=== PATIENT | female | born 1960 | race Caucasian/White ===

== ENCOUNTER → 2016-07-31 | Outpatient (REF) | payer MEDICARE, MEDICAID ==
[~2016-07-31] MED LIST: ALEN70TA47 PO; ALPR0.5T PO; ALPR1TAB2 PO; ARIP5TAB5 PO; ATOR40TA59 PO; CALC-815 PO; CALC300T4 PO; CARB1DRO12 OP; CYCL1DRO2 OP; DULO30CA PO; DULO60CA7 PO; GBPN600T PO; HYDR-3708 PO; IPRA4AER IH; LETR2.5T5 PO; LEVO100T PO; METH10TA5 PO; METH18TA4 PO; MORP60TA52 PO; NF-LUBIP24 PO; PROP1DRO OP; PROP20TA5 PO; RANI150T11 PO; TRAZ100T92 PO; [UNRECOGNIZED DRUG - REMARK]; [UNRECOGNIZED DRUG - REMARK]; [UNRECOGNIZED DRUG - REMARK]; combivent; cymbalta PO; gabapentin; lortab; morphine; simvastatin; xanax; zantac
[2016-07-31 12:51] LABS: ALBUMIN 4.5 g/dL (3.4-5.0); ALKALINE PHOSPHATASE 152 U/L (38-126); ANION GAP 16.7 MEQ/L (3-15); BUN/CREATININE RATIO 21 (10-20); CALCULATED IONIZED CALCIUM 4.4 mg/dL (3.8-4.6); TOTAL PROTEIN 7.9 g/dL (6.4-8.5)
== END ==
LOC: LAB 12:09
PROVIDERS: ATTEND Family Medicine
DX: E03.8 Other specified hypothyroidism (principal); E27.49 Other adrenocortical insufficiency
CPT/HCPCS: 80053; 84439; 84443; 84481; 84482

== ENCOUNTER → 2016-08-13 | Outpatient (CLI) | payer MEDICARE, MEDICAID | LOC: LAB 14:29 | PROVIDERS: ATTEND Family Medicine | DX: D83.8 Other common variable immunodeficiencies (principal) | CPT/HCPCS: 82784 ==

== ENCOUNTER → 2016-09-07 | Outpatient (CLI) | payer MEDICARE, MEDICAID | LOC: RAD 08:45 | PROVIDERS: ATTEND Allergy & Immunology | DX: D83.8 Other common variable immunodeficiencies (principal); R50.9 Fever, unspecified; D64.9 Anemia, unspecified; E89.0 Postprocedural hypothyroidism; Z90.11 Acquired absence of right breast and nipple; Z90.710 Acquired absence of both cervix and uterus | CPT/HCPCS: 71260; 74178; Q9967 ==

== ENCOUNTER 2016-10-02 12:12 | Emergency (ER) | payer MEDICARE, MEDICAID ==
[~2016-10-02] VITALS: Ht 170.2 cm; Wt 109.0 kg
--- NOTE | 2016-10-02 12:12 | NUR ---
TRIAGE TIME IS ACTUALLY 1212. CL
--- OUTSIDE RECORDS SUMMARY | 2016-10-02 12:17 | XMS REPORT | Continuity of Care Document ---
Author Author [facility] Organization [facility] Address Unknown Phone Unavailable Care Team Providers Care Quality Control Supervisor Name Role Phone Preston, Jered PCP [phone] Source Comments Some departments are not documenting in the electronic medical record. If you do not see the information that you expected, contact Release of Information in the Health Information Management department at [phone] for further assistance in locating additional records.[facility] Active Allergies and Adverse Reactions Allergen Noted Date Severity Reactions Comments Pcn 01/07/2014 EDEMA hands Current Medications Prescription Sig. Disp. Refills Start End Date Status Date cycloSPORINE (RESTASIS) Place 1 Drop into or Active 0.05 % ophthalmic around eye(s) twice emulsion daily. Usually uses just once a day morphine SR(+) (TRELL) Take 15 mg by mouth every Active 80 mg capsule 24 hours 1-3 tablet a day gabapentin (NEURONTIN) Take 600 mg by mouth Active 600 mg tablet three times daily. methylphenidate CR Take by mouth every Active (CONCERTA) 54 mg tablet morning Indications: 35mg ALPRAZolam (XANAX) 0.5 mg Take 1 mg by mouth at Active tablet bedtime as needed. alendronate (FOSAMAX) 70 Take 70 mg by mouth every Active mg tablet 7 days. letrozole (FEMARA) 2.5 mg Take 2.5 mg by mouth Active tablet daily. simvastatin (ZOCOR) 40 mg Take 40 mg by mouth at Active tablet bedtime daily. THYROID,PORK (ARMOUR Take by mouth. Active THYROID PO) magnesium Active desvenlafaxine(+) Take by mouth daily. Active (PRISTIQ) 50 mg tablet Indications: 100mg acyclovir (ZOVIRAX) 400 Take 400 mg by mouth as Active mg tablet Needed. MINERAL Place into or around Active OIL/PETROLATUM,WHITE eye(s). (REFRESH P.M. OP) SELENIUM PO Take by mouth. Active glycine powd Take by mouth. Active other medication 1 Dose. UBQH Active other medication Methyl B 12 Active other medication 1 Dose. Active Calcium/Magnesium/zxinc with Vit D lactobacillus rhamnosus Take by mouth twice Active GG (LACTOBACILLUS daily with meals. RHAMNOSUS (GG)) 15 billion cell cpSP cyclobenzaprine Take 10 mg by mouth three Active (FLEXERIL) 10 mg tablet times daily as needed for Muscle Cramps. HYDROCORTISONE PO Take 10 mg by mouth. 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 Social History Tobacco Use Types Packs/Day Years Used Date Current Every Day Smoker Cigarettes 1 Smokeless Tobacco: Never Used Alcohol Use Drinks/Week oz/Week Comments No one drink every few months Last Filed Vital Signs Vital Sign Reading Time Taken Blood Pressure 123/71 10/24/2015 2:47 PM CDT Pulse 76 10/24/2015 2:47 PM CDT Temperature - - Respiratory Rate - - Height 1.676 m (5' 6") 10/24/2015 2:47 PM CDT Weight 54.795 kg (120 lb 12.8 10/24/2015 2:47 PM CDT oz) Body Mass Index 19.51 10/24/2015 2:47 PM CDT Oxygen Saturation - - Plan of Care Health Maintenance Due Date Last Done Comments Hepatitis C Screening 1962 Physical (Comprehensive) 1969 Exam Pertussis Vaccine 1973 Tetanus Vaccine 1979 Cervical Cancer Screening 1983 Breast Cancer Screening 2002 Colorectal Cancer 2012 Screening Influenza Vaccine 03/22/2016 Results from Last 3 Months Not on file
[2016-10-02 12:34] LABS: BASOPHILS % (AUTO) 0 % (0-2); EOSINOPHILS # (AUTO) 0.3 10^3uL; EOSINOPHILS % (AUTO) 3 % (0-4); LYMPHOCYTES # (AUTO) 1.6 X10^3; MEAN CORPUSCULAR HEMOGLOBIN 29.4 PG (26.0-34.0); MEAN CORPUSCULAR HGB CONC 32.4 g/dL (31.0-37.0); MEAN CORPUSCULAR VOLUME 91 FL (80-100); MEAN PLATELET VOLUME 9.8 FL (6.0-9.5); MONOCYTES # (AUTO) 0.9 X10^3; MONOCYTES % (AUTO) 10 % (3-11); NEUTROPHILS # (AUTO) 6.8 X10^3; NEUTROPHILS % (AUTO) 71 % (51-67); PLATELET COUNT 253 10^3uL (150-450); WHITE BLOOD COUNT 9.67 10^3uL (4.0-11.0)
[2016-10-02 13:00] LABS: ALKALINE PHOSPHATASE 138 U/L (38-126); ANION GAP 10.4 MEQ/L (3-15); BUN/CREATININE RATIO 24 (10-20); CALCULATED IONIZED CALCIUM 4.2 mg/dL (3.8-4.6); TOTAL PROTEIN 7.2 g/dL (6.4-8.5)
[2016-10-02 13:05] LABS: BILIRUBIN,URINE Negative (Negative); CLARITY,URINE Clear; COLOR,URINE Yellow; GLUCOSE, URINE (UA) Negative (Negative); LEUKOCYTE ESTERASE ,URINE Negative (Negative); PH,URINE 6.5 (5.0 - 8.0); UROBILINOGEN,URINE 0.2 mg/dL (0.2-1.0)
[2016-10-02 13:13] LABS: AMPHETAMINE SCREEN, URINE Positive (Negative); CANNABINOID SCREEN, URINE Positive (Negative); METHAMPHETAMINE SCREEN URINE S NEGATIVE (NEGATIVE); OPIATE SCREEN URINE Positive (Negative)
[2016-10-02 13:14] LABS: PROPOXYPHENE STAT NEGATIVE (NEGATIVE)
[2016-10-02] MEDS ORDERED: NALOXONE 0.4 MG/ML (NARCAN) 1 ML VIAL IV ONE (13:40)
[2016-10-02] MEDS ORDERED: FLUMAZENIL (ROMAZICON) 0.1 MG/ML 5 ML VIAL IV ONE (13:40)
--- NOTE | 2016-10-02 13:55 | NUR ---
DR MOORE AT BEDSIDE WITH GRANDFATHER WHEN THIS RN PUSHES RAMAZICON. PT SOUNDLY SLEEPING AT FIRST BUT 30 SECS AFTER MED ADMINISTRATION, PT SUDDENLY AWAKENS SITTING STRAIGHT UP IN THE BED. PT ALERT & ORIENTED. PT VERBALLY DENIES TAKING TOO MUCH OR EXTRA MEDICATION REPEATEDLY. PT ALSO STATES SHE HAS MEMORY PROBLEMS DUE TO HER GRAVES DX. STATES [place] W[place] SHOP[place] & GOT HOME LATE LAST NIGHT TAKING HER MEDICATIONS FOR NIGHT LATE. DR MOORE TALKS WITH PT & GRANDFATHER. CL
--- NOTE | 2016-10-02 14:03 | NUR ---
PT STATES SHE WANTS ALL EQUIPT & IV REMOVED STATING "HE SAID I COULD GO HOME NOW". PT INFORMED THIS RN WILL GET THE PAPERWORK AFTER THE DOCTOR COMPLETES THE DISMISSAL. CL
[2016-10-02 20:02] VITALS: BP 125/69
== END 2016-10-02 14:28 | disposition home or self-care (01) ==
LOC: EDUNIT# 12:12 → ED 12:13
DX: T42.4X1A Poisoning by benzodiazepines, accidental (unintentional), initial encounter (principal); T47.0X1A Poisoning by histamine H2-receptor blockers, accidental (unintentional), initial encounter; R41.82 Altered mental status, unspecified; R53.83 Other fatigue
CPT/HCPCS: 36415; 80053; 81003; 84439; 84443; 85025; 96374; 99284; G0478; J3490; J7030; 80307; 84436; 99282

== ENCOUNTER → 2016-10-02 | Outpatient (CLI) | payer MEDICARE, MEDICAID | LOC: EMS 12:00 | PROVIDERS: ATTEND Emergency Medicine | DX: R53.83 Other fatigue (principal); R41.82 Altered mental status, unspecified; I63.9 Cerebral infarction, unspecified ==

== ENCOUNTER → 2016-12-06 | Outpatient (CLI) | payer MEDICARE ==
--- NOTE | 2016-12-06 14:42 | Diagnostic Imaging Report ---
PROCEDURE: US Aorta Doppler. TECHNIQUE: Multiple real time grayscale images were obtained over the abdominal aorta in various projections. INDICATION: Abdominal bruit with pulsatile mass. FINDINGS: There is very dense atherosclerotic disease aorta which is ectatic . Maximal diameter of 2.4 cm seen in the mid aorta. Distal aorta measures 2.1 cm. Iliac arteries are not dilated measuring 8 mm. There is increased velocity within the iliac arteries bilaterally suggesting moderate stenosis between 50 and 70%. IMPRESSION: 1. Atherosclerotic disease with ectatic aorta. Maximal diameter of 2.4 cm. 2. 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 Dictated by: Dictated on workstation # [id number]
--- NOTE | 2016-12-06 15:20 | Diagnostic Imaging Report ---
INDICATION: Pulsatile abdominal mass. Hypertension. FINDINGS: The right kidney Doppler sampling shows peak velocity in the distal branches of 154 cm/s. Resistive index is normal at 0.7. Kidney shows long axis of 11.2 cm. The left kidney shows long axis of 11 cm. Peak velocity noted in the proximal renal artery of 99 cm/s. Resistive index is normal at 0.7. Renal cortex is well preserved with smooth renal outlines. IMPRESSION: Bilateral renal Doppler ultrasound showing no changes to indicate hemodynamically significant stenosis within the renal arteries. Dictated by: Dictated on workstation # [id number]
== END ==
LOC: RAD 09:54
PROVIDERS: ATTEND Family Medicine
DX: R09.89 Other specified symptoms and signs involving the circulatory and respiratory systems (principal); R19.00 Intra-abdominal and pelvic swelling, mass and lump, unspecified site
CPT/HCPCS: 93976; 93978

== ENCOUNTER → 2016-12-14 | Outpatient (CLI) | payer MEDICARE, MEDICAID ==
--- NOTE | 2016-12-14 17:02 | Diagnostic Imaging Report ---
INDICATION: Palpable axillary nodule. History of prior right mastectomy. EXAMINATION: Left breast sonogram, 12/14/2016. FINDINGS: Grayscale and color Doppler ultrasound imaging of the left axilla was performed. There is a very tiny hypoechoic area which is fairly superficial and measures 0.4 x 0.2 x 0.3 cm in size. It has peripheral hypoechogenicity with central echogenic areas suggestive of a likely small lymph node with vascularity to the periphery also noted. No other lesion is identified. IMPRESSION: Site of palpable concern could represent a very tiny subcentimeter lymph node. This has a probably benign appearance but a three-month followup is recommended to assure stability, given history of previous contralateral breast cancer. Patient was advised if this increases in size in the interim a short-term sonogram could be performed prior to the three-month followup. ACR BI-RADS Category 3: Probably benign findings. Result letter will be mailed to the patient. Note: At least 10% of breast cancer is not imaged by mammography. Dictated by: Dictated on workstation # [id number]
--- NOTE | 2016-12-14 17:05 | Diagnostic Imaging Report ---
INDICATION: Prior history of right mastectomy. Palpable lump in the axilla on the left. EXAMINATION: Left breast digital diagnostic mammogram with CAD, 12/14/2016. The current study was also evaluated with a Computer Aided Detection (CAD) system. COMPARISON: 11/22/2015, 11/10/2013 and 11/15/2014. FINDINGS: The left breast is stable in appearance from previous imaging. The breast is heterogeneously dense. No new suspicious microcalcifications or dominant mass is appreciated. The area of palpable concern towards the axilla was spot compressed but is at the edge of the images. Sonogram of the region was performed and demonstrates a very tiny nonspecific subcutaneous lesion, most likely a lymph node. IMPRESSION: 1. Findings at the site of palpable concern most likely a normal lymph node; however, a short-term three-month followup sonogram is recommended. It was advised to the patient that if this increases in size in the interim a followup sonogram could be performed at an earlier date. 2. Remaining left breast is stable. ACR BI-RADS Category 3: Probably benign findings. Result letter will be mailed to the patient. Note: At least 10% of breast cancer is not imaged by mammography. Dictated by: Dictated on workstation # [id number]
== END ==
LOC: RAD 12:50
PROVIDERS: ATTEND Family Medicine
DX: N63 Unspecified lump in breast (principal)
CPT/HCPCS: 76642; G0206